=== PATIENT | female | born 1975 | race Two or more races ===

== ENCOUNTER 2024-09-21 12:55 | Observation (INO) | payer MEDICAID, SELFPAY ==
--- NOTE | 2024-09-18 06:30 | EKG_ITS ---
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: ANAYA : 1975 Requested By: Aren Rizzo Order Number: [id number] Reading MD: Aren Rizzo Measurements Intervals Holcomb Rate: 56 P: 41 NH: 169 QRS: -17 QRSD: 99 T: 1 QT: 443 QTc: 430 Interpretive Statements SINUS BRADYCARDIA LOW QRS VOLTAGE IN PRECORDIAL LEADS [QRS DEFLECTION < 1.0 mV IN CHEST LEADS] PATTERN CONSISTENT WITH PULMONARY DISEASE INCOMPLETE RIGHT BUNDLE BRANCH BLOCK [90+ ms QRS DURATION, TERMINAL R IN V1/V2, 40+ ms S IN I/aVL/V4/V5/V6] Compared to ECG 10/14/2023 15:42:14 Low QRS voltage now present Incomplete right bundle-branch block now present Sinus rhythm no longer present Ventricular premature complex(es) no longer present /store/S0/[id number]/ecg/[id number].pdf
[2024-09-18 11:01] VITALS: BMI 37.0
[2024-09-18 11:34] LABS: Collection Type, Urine Clean Catch
[2024-09-18 12:09] LABS: Basophils % (Auto) 1 % (0-2.5); Eosinophils # (Auto) 0.1 Thou/mm3 (0.0-0.5); Eosinophils % (Auto) 2 % (0-10); Hematocrit 39.3 % (36.0-46.0); Hemoglobin 13.6 g/dL (12.0-16.0); Immature Granulocytes % (Auto) 0 % (0-0); Immature Granulocytes Auto 0.02 Thou/mm3 (0.00-0.00); Lymphocytes # (Auto) 2.9 Thou/mm3 (1.0-4.8); Lymphocytes % (Auto) 41 % (10-50); Mean Corpuscular HGB Conc 34.6 g/dl (31.0-37.0); Mean Corpuscular Hemoglobin 30.9 pg (25.0-35.0); Mean Corpuscular Volume 89 fL (80-100); Monocytes # (Auto) 0.7 Thou/mm3 (0.0-0.8); Monocytes % (Auto) 9 % (0-12); Neutrophils # (Auto) 3.4 Thou/mm3 (1.8-7.7); Neutrophils % (Auto) 48 % (37-80); Nucleated Red Blood Cell % 0 /100 WBC (0); Platelet Count 312 Thou/mm3 (140-440); RDW Standard Deviation 42.1 fL (36.4-46.3); White Blood Count 7.1 Thou/mm3 (3.6-11.0)
[2024-09-18 12:16] LABS: Partial Thromboplastin Time 29.3 Seconds (22.0-36.0)
[2024-09-18 12:23] LABS: Bilirubin,Urine Negative (Negative); Blood,Urine Negative (Negative); Clarity,Urine Clear (Clear/Hazy); Color,Urine Colorless (Lt Yel-Yel); Glucose, Urine Negative (Negative); Ketones,Urine Negative (Negative); Leukocyte Esterase,Urine Negative (Negative); Nitrite,Urine Negative (Negative); PH,Urine 6.5 (5.0-7.0); Protein,Urine Negative (Neg - Trace); RBC,Urine 1 /hpf (0-3); Specific Gravity,Urine 1.006 (1.001-1.035); Squamous Epithelial Cell,Urine 1 /hpf (0-5); Urobilinogen,Urine Negative mg/dL (0.0-1.0); WBC,Urine < 1 /hpf (0-5)
[2024-09-18 12:28] LABS: Alanine Aminotransferase 28 U/L (10-49); Albumin, Serum 4.6 gm/dL (3.5-5.0); Albumin/Globulin Ratio 1.7 (1.2-2.2); Alkaline Phosphatase 61 U/L (46-116); Anion Gap 10 (7-16); Aspartate Amino Transferase 31 U/L (0-34); BUN/Creatinine Ratio 16 Ratio (12-20); Bilirubin,Total 0.5 mg/dL (0.3-1.2); Blood Urea Nitrogen 13 mg/dL (9-23); Calcium 9.9 mg/dL (8.3-10.6); Calcium (Corrected) 9.9 mg/dL (8.5-10.1); Carbon Dioxide 27.6 mMol/L (20.0-31.0); Chloride 101 mMol/L (98-107); Creatinine (Component) 0.8 mg/dL (0.6-1.3); Estimated Creatinine Clearance 87.8 mL/min (>60); Globulin 2.7 gm/dL (2.3-3.5); Glucose 106 mg/dL (74-106); Osmolality,Calculated 277 (275-295); Potassium 3.8 mMol/L (3.4-5.1); Sodium 139 mMol/L (136-145); Total Protein 7.3 gm/dL (5.7-8.2); eGFR > 60 See Note
[2024-09-21] VITALS (13 sets, daily range): BP systolic 131–159; BP diastolic 81–98; PULSE 65–84; RESP 12–96; TEMP 36.3–36.6; O2SAT 93–100; BMI 39.2
[2024-09-21] MEDS: RINGERS LACTATED 1000 ML 1,000 ML 60 ML IV (06:44)
--- NOTE | 2024-09-21 11:16 | PD.SUROPNT ---
Date of Procedure 09/21/24 Pre Op Diagnosis Large hiatal hernia and gastroesophageal reflux. Post Op Diagnosis Same. Procedure Laparoscopic hiatal hernia repair with implantation of phasic ST patch and Uma fundoplication on 09/21/2024 Findings This patient has a 6 cm hiatal hernia. Portion of the stomach and esophagus resided inside the mediastinum. There were some adhesions underneath the laparoscopic incision scar. Procedure Description Patient was interviewed in the preop holding area and the procedure was discussed in detail. Risk benefits and alternatives were also discussed and informed consent is obtained. The patient was then brought to the operating room by the nursing staff. The patient was positioned in supine position on the operating table. Gen. anesthesia was administered in a satisfactory manner. The patient was positioned in the modified lithotomy position in the yellow fins. Patient was given prophylactic IV antibiotics half an hour before the procedure started. The Flowtron's are applied to both legs is anti-embolism mechanism. The chest abdomen and genitalia and the legs are prepped and draped in usual manner. An open laparoscopic procedure is carried out and balloon cannula is inserted through the supraumbilical incision. There were adhesions to the peritoneal side of the linea alba and lysis of adhesions was required to insert the balloon cannula. After that the pneumoperitoneum is achieved. The patient is positioned in the reverse Trendelenburg position. The 30? scope is used. Under direct vision a 5 mm cannula is inserted in the subxiphoid location, 10 mm cannula is inserted in the left midclavicular location, a 10 mm cannula is inserted in the left anterior axillary line and a 5 mm cannula is inserted in the right midclavicular line. A Edward retractor is used through the subxiphoid incision to retract the left lobe of the liver to the right side. The harmonic ultrasonic beata are used to divide the gastrohepatic omentum. The dissection is carried out towards the diaphragmatic hiatus and the esophago-phrenic gastrophrenic and gastrosplenic ligaments are divided with the harmonic ultrasonic beata. A retroesophageal window is created protecting the posterior vagus nerve and an umbilical tape is passed around the esophagus to be used as a retractor. Further dissection is carried out in the posterior mediastinum and the esophagus is further freed from the mediastinal structures and the esophagus is pulled down into the abdomen. The greater curvature of the stomach is examined and the short gastric vessels on the greater curvature were divided with harmonic ultrasonic beata. The gastrosplenic ligaments are divided in a similar manner and the gastropancreatic ligaments are divided. After the greater curvature and the fundus is freed completely the examination is carried out in the retroesophageal space and small ligaments are divided. The hemostasis is already achieved. The hiatal hernia defect is examined carefully and it is repaired by intra and extracorporeal technique with a 3-0 Ethibond interrupted sutures. The diaphragmatic repair is carried out posterior to the esophagus. Enough space his left around the esophagus to avoid obstruction. At this point phasic's ST bioabsorbable patch was used and tailored in place and placed in an onlay manner over the diaphragmatic repair and sutured in place. Multiple sutures were taken on both the side of the esophagus between the diaphragm and the patch and also patch was sutured over the diaphragmatic repair. Now the Uma 360? fundoplication is carried out. The orogastric tube is removed and a 56 Welsh Al dilator is inserted into the esophagus and stomach by the anesthesiologist. This is used as an internal stent for calibration of the lumen. Now the freed fundus is brought around the esophagus from the left side behind the esophagus to the front on the right side and it is sutured to the left side of the fundus by intracorporeal and extracorporeal techniques using a 3-0 Ethibond interrupted sutures. There are 3 sutures placed to complete the fundoplication. The sutures passed through right and left side of the fundus as well as anterior wall of the esophagus. The Al dilator is removed. Multiple Lembert stitchs are taken between the right and left side of the fundus to the esophagus. The operative field is thoroughly irrigated with saline solution and the hemostasis is achieved. The umbilical tape is divided and it is removed. The Interceed an anti-adhesion barrier is placed between the liver and the stomach. The Edward retractor is removed under direct vision. All the cannulas are removed under laparoscopic vision and there is no bleeding from the cannula site incisions. The balloon cannula is removed and the pneumoperitoneum is allowed to escape. The midline incision is closed in layers. The fascia is approximated by 2-0 Vicryl continuous sutures. The subcutaneous tissue is approximated by 3-0 chromic suture and the skin is approximated by 4-0 nylon interrupted sutures. The trocar site incisions are closed with the 3-0 chromic and a 4-0 Monocryl stitches. Steri-Strips were applied. Sterile dressings are applied. The patient tolerated the procedure very well and is transferred to the recovery room in satisfactory condition. Anesthesia GETA Drains None. Implants Phasic ST patch over the diaphragm Pathology / specimen None Estimated Blood Loss 10 Condition Stable Disposition PACU Surgeon Aren Rizzo MD Surgical Staff Operation Date: 09/21/24 07:30 Case Staff Anesthesiologist: Akil Reich RN First Assistant: Xiao Watts RN diesel truck crane operator Shannan manager surgical
--- NOTE | 2024-09-21 11:35 | SUR.PHASEI ---
1135: Pt. AAOx4, vitals stable, breathing unlabored, no complaint of pain or nausea, x5 dressing to ABD CDI, no active bleed noted, report received from Des GUEVARA and MD Reich.
[2024-09-21] MEDS: fentaNYL CIT INJ 50 mCg/ML AMP 2ML 25 MCG IVP ×3 (11:54→12:14)
--- NOTE | 2024-09-21 12:22 | SUR.PHASEII ---
Received report on pt. s/p surgery from Angela GUEVARA. Pt. is resting with eyes closed, no c/o pain or nausea at this time, lap sites x5 to abd. CDI, VSS.
--- NOTE | 2024-09-21 12:24 | SUR.PHASEII ---
1224: Report given to Jasmina GUEVARA to resume care.
--- NOTE | 2024-09-21 12:42 | SUR.PHASEII ---
Called and gave report on pt. s/p surgery to Shahana GUEVARA on M/S unit. Pt. is resting with eyes closed, VSS.
--- NOTE | 2024-09-21 12:50 | SUR.PHASEII ---
Pt. transferred to room 371 via bed with all of belongings, IV flushed and patent, VSS, lap sites x5 Shahana FONTANEZ RN assumed care of pt.
[2024-09-21] MEDS: ACETAMINOPHEN IVPB 1,000 MG/100 ML VIAL 250 MG IV ×2 (13:55→18:02)
[2024-09-21] MEDS: HYDROmorphone INJ 2 MG/ML VIAL 1 MG IVP ×2 (15:22→23:03)
[2024-09-21] MEDS: ONDANSETRON INJ 2 MG/ML INJ 2 ML 4 MG IVP (19:43)
[2024-09-22] VITALS: BP 124/72; PULSE 72; RESP 18; TEMP 36.1; O2SAT 93
[2024-09-22] MEDS: ACETAMINOPHEN IVPB 1,000 MG/100 ML VIAL 250 MG IV ×2 (00:18→06:19)
[2024-09-22] MEDS: RINGERS LACTATED 1000 ML 1,000 ML 100 ML IV (03:29)
[2024-09-22] MEDS: HYDROmorphone INJ 2 MG/ML VIAL 1 MG IVP ×2 (03:53→12:21)
[2024-09-22 04:00] VITALS: BP 135/74; PULSE 60; RESP 18; TEMP 36.1; O2SAT 94
[2024-09-22] MEDS: LEVOTHYROXINE SODIUM 100 MCG TABLET PO (06:22)
[2024-09-22 08:00] VITALS: BP 143/81; PULSE 60; RESP 18; TEMP 36.2; O2SAT 96
[2024-09-22 12:00] VITALS: BP 145/89; PULSE 68; RESP 18; TEMP 36.3; O2SAT 93
[2024-09-22] MEDS: ONDANSETRON INJ 2 MG/ML INJ 2 ML 4 MG IVP (12:25)
--- NOTE | 2024-09-22 15:01 | PC.SS ---
SS met with patient regarding her d/c plan. Pt is alert/oriented. Pt was admitted for [place] [id number]. Pt confirmed demographic and contact information is correct on facesheet. Pt resides with and kids. Pt ambulates independently without assistance or DME. Pt is ok with all ADLs. Patient?s pharmacy of choice is [facility]. Pt named her , Irvin Mann medical decision maker if she is unable. Patient?s choice is to return home upon d/c. will provide transportation home. D/C plan: Return home Next of Kin: Irvin Mann, , phone# [phone] PCP: Gerardo Oakes from [facility] in [place] Address: Correct on facesheet
== END 2024-09-22 15:50 | disposition home or self-care (01) ==
LOC: S3SX 09-22 06:49
PROVIDERS: Admitting Provider Specialist; PCP Physician Assistant; Referring Provider Specialist; Visit Provider Specialist
PROC: 0DV44ZZ Restriction of Esophagogastric Junction, Percutaneous Endoscopic Approach (ICD-10-PCS; CPT 43280; principal; 2024-09-21 07:30)
DX: K44.9 Diaphragmatic hernia without obstruction or gangrene (principal); K21.9 Gastro-esophageal reflux disease without esophagitis; Z01.810 Encounter for preprocedural cardiovascular examination
CPT/HCPCS: 43281; 43450; 36415; 80053; 81001; 85025; 85730; 93005; 94664; 96361; 96365; 96366; 96375; 96376; A4217; A4649; C1765; C1781; G0378; J0131; J0694; J1171; J2250; J2405; J2704; J2765; J3010; J3490; J7120; A9270